=== PATIENT | male | born 1950 | race Caucasian/White ===

== ENCOUNTER 2023-07-25 09:45 | Day surgery (SDC) | payer MEDICARE, OTHER ==
[2023-07-24 10:48] LABS: BASOPHILS % (AUTO) 0.5 % (0-1); EOSINOPHILS # (AUTO) 0.1 X10'3 (0-0.9); EOSINOPHILS % (AUTO) 2.2 % (0-6); HEMATOCRIT 44.8 % (42.0-52.0); HEMOGLOBIN 15.5 g/dl (14.0-17.9); LYMPHOCYTES # (AUTO) 1.1 X10'3 (1.1-4.8); LYMPHOCYTES % (AUTO) 16.1 % (21-51); MEAN CORPUSCULAR HGB CONC 34.5 g/dL (33.0-36.5); MEAN CORPUSCULAR VOLUME 89.9 FL (78-98); MEAN PLATELET VOLUME 8.9 FL (7.4-10.4); MONOCYTES # (AUTO) 0.4 X10'3 (0-0.9); MONOCYTES % (AUTO) 5.9 % (2-12); NEUTROPHILS % (AUTO) 75.3 % (42-75); PLATELET COUNT 245 X10'3 (140-440); RED BLOOD COUNT 4.98 X10'6 (4.70-6.10); WHITE BLOOD COUNT 6.7 X10'3 (4.5-11.0)
[2023-07-24 11:00] LABS: APTT 30 SECONDS (22-32); PROTHROMBIN TIME 10.9 SECONDS (9.0-12.0)
[2023-07-24 11:22] LABS: ALBUMIN 3.5 G/DL (3.4-5.0); ANION GAP 7 (8-16); BLOOD UREA NITROGEN 27 MG/DL (7-18); CALCIUM 8.9 MG/DL (8.5-10.1); CHLORIDE 104 MMOL/L (99-107); CREATININE 1.23 MG/DL (0.60-1.10); GLUCOSE 107 MG/DL (70-104); POTASSIUM 4.4 MMOL/L (3.5-5.1); SODIUM 137 MMOL/L (135-145); TOTAL CARBON DIOXIDE 26.5 MMOL/L (24-32); eGFR 58 ML/MIN
[~2023-07-25] VITALS: Ht 180.3 cm; Wt 118.5 kg
[2023-07-25] VITALS (13 sets, daily range): BP systolic 122–161; BP diastolic 82–105; PULSE 71–89; RESP 10–20; TEMP 97.6; O2SAT 95–98
[2023-07-25] MEDS ORDERED: normal saline 1,000 ML IV SCH (10:15)
[2023-07-25] MEDS ORDERED: diphenhydrAMINE 25mg capsule PO PRN (10:15)
[2023-07-25] MEDS ORDERED: acetylcysteine 200 MG/ml 4ml vial PO PRN (10:15)
[2023-07-25] MEDS ORDERED: LORazepam 0.5 MG tablet PO PRN (10:15)
[2023-07-25] MEDS ORDERED: sodium bicarbonate 1meq/ml syr 150 ML in dextrose 5%-water 1,000 ML IV ONE (10:30)
[2023-07-25] MEDS ORDERED: CARV3.122 PO (11:17)
[2023-07-25] MEDS ORDERED: AMIO200T27 PO (11:17)
[2023-07-25] MEDS ORDERED: RIVA20TA PO (11:17)
[2023-07-25] MEDS ORDERED: midazolam 1 mg/ML 2ml injection ONE (12:38)
[2023-07-25] MEDS ORDERED: verapamil 2.5 mg/ml inj IV ONE (12:38)
[2023-07-25] MEDS ORDERED: heparin 1,000unit/ml 10ml vial 10 ML ONE (12:39)
[2023-07-25] MEDS ORDERED: fentaNYL/PF 50MCG/1 ML 2ML syringe ONE (12:39)
[2023-07-25] MEDS ORDERED: iohexol 350 MG/ML 50ML vial IV ONE (12:39)
[2023-07-25] MEDS ORDERED: nitroGLYCERIN 500mcg/5mL D5W 5 ML IV ONE (12:39)
[2023-07-25] MEDS ORDERED: iohexol 350MG/ML 100ml bottle IV ONE ×2 (12:39→15:39)
[2023-07-25] MEDS ORDERED: LIDOcaine 1% (10mg/ml) 2ml vial ONE (12:40)
[2023-07-25] MEDS ORDERED: LIDOcaine 1% (10mg/ml)w/preservative inj. 20ml MDV ONE (15:19)
[2023-07-25 16:00] LABS: ISTAT HGB ART 13.9 g/dl (14.0-17.9); ISTAT Hct ART 41 %PCV (42-52); ISTAT O2 SATURATION ARTERIAL 94 % (95-98); ISTAT SOURCE ART
[2023-07-25 16:25] LABS: ISTAT HGB MIX 13.6 g/dl (14.0-17.9); ISTAT Hct MIX 40 %PCV (42-52); ISTAT O2 SATURATION MIX VENOUS 66 % (60-80); ISTAT SOURCE VEN
[2023-07-25] MEDS ORDERED: normal saline 1000ml 1,000 ML IV SCH (16:35)
== END 2023-07-25 20:30 | disposition home or self-care (01) ==
LOC: SSTAY O 09:45
PROVIDERS: ATTEND Internal Medicine Cardiovascular Disease
DX: R94.39 Abnormal result of other cardiovascular function study (principal); I25.10 Atherosclerotic heart disease of native coronary artery without angina pectoris; I48.0 Paroxysmal atrial fibrillation; E78.5 Hyperlipidemia, unspecified; E66.01 Morbid (severe) obesity due to excess calories; Z68.36 Body mass index [BMI] 36.0-36.9, adult; Z79.899 Other long term (current) drug therapy
CPT/HCPCS: 36415; 76937; 80048; 82803; 85014; 85025; 85610; 85730; 93005; 93460; 99152; 99153; A6258; J1644; J2250; J3010; J3490; J7030; J7070; Q0163; Q9967; A6402; C1725; C1751; C1769; C1894